=== PATIENT | female | born 1970 | race American Indian/Alaskan Native ===

== ENCOUNTER 2022-01-31 12:42 | Emergency (ER) | payer SELFPAY ==
[2022-01-31] MEDS ORDERED: cefTRIAXone/NS 1 GM/50 ML 1 GM/50 ML BAG IV ONE (15:46)
--- NOTE | 2022-01-31 16:22 | XRay Report ---
CHEST 1 VIEW 01/31/2022 3:16 PM INDICATION / CLINICAL INFORMATION: sob. COMPARISON: None available. FINDINGS: SUPPORT DEVICES: None. HEART / MEDIASTINUM: No significant abnormality. LUNGS / PLEURA: No significant pulmonary or pleural abnormality. No pneumothorax. ADDITIONAL FINDINGS: No significant additional findings. IMPRESSION: 1. No acute findings. Signer Name: Shalom Foster Jr, MD Signed: 01/31/2022 4:18 PM Workstation Name: [id number]
[2022-01-31 16:50] LABS: Alanine Aminotransferase 14 units/L (7-56); Albumin 3.7 g/dL (3.9-5); BUN/Creatinine Ratio 15; Blood Urea Nitrogen 17 mg/dL (7-17); Calcium 9.1 mg/dL (8.4-10.2); Hemolysis Index 14
[2022-01-31 19:43] LABS: Mucus,Urine 3+ /HPF
[2022-01-31 19:46] LABS: WBC,Urine > 182.0 /HPF (0.0-6.0)
--- NOTE | 2022-01-31 19:48 | Emergency Department Report ---
ED Fever HPI - General Chief Complaint: Fever Stated Complaint: FEVER/NAUSEA/VOMITING Time Seen by Provider: 01/31/22 15:45 Source: patient Exam Limitations: no limitations - History of Present Illness Initial Comments: 51-year-old -[place] female sent from [facility] because she had a fever of 102. Patient admits to having cough patient admits that she is having dysur ia frequency and was put on Keflex a week ago but is still having symptoms admits to dysuria and frequency. Timing/Duration: week (1) Fever Severity/Quality: greater than 100.5 F Associated Symptoms: cough, other (Burning on urination) ED Review of Systems ROS: Stated complaint: FEVER/NAUSEA/VOMITING Other details as noted in HPI Constitutional: see HPI Eyes: denies: eye pain, eye discharge, vision change ENT: denies: ear pain, throat pain Respiratory: cough. denies: shortness of breath, wheezing Cardiovascular: denies: chest pain, palpitations Endocrine: no symptoms reported Gastrointestinal: denies: abdominal pain, nausea, diarrhea Genitourinary: urgency, dysuria, frequency Skin: denies: rash, lesions Neurological: denies: headache, weakness, paresthesias Psychiatric: denies: anxiety, depression Hematological/Lymphatic: denies: easy bleeding, easy bruising ED Past Medical Hx - Past Medical History Previous Medical History?: Yes Hx Hypertension: Yes Hx Arthritis: Yes Hx Psychiatric Treatment: Yes (bipolar) - Surgical History Past Surgical History?: No - Social History Smoking Status: Never Smoker Substance Use Type: None - Medications Home Medications: Home Medications Medication Instructions Recorded Confirmed Last Taken Type Cefuroxime Axetil [Ceftin] 500 mg PO Q12H #20 ml 01/31/22 Unknown Rx Ondansetron (Nf) [Zofran TAB] 8 mg PO Q8HR PRN #10 tablet 01/31/22 Unknown Rx ED Physical Exam - General Limitations: No Limitations, Other General appearance: alert, in no apparent distress - Head Head exam: Present: atraumatic, normocephalic - Eye Eye exam: Present: normal appearance, PERRL, EOMI - ENT ENT exam: Present: normal exam, normal orophraynx, mucous membranes moist - Neck Neck exam: Present: normal inspection. Absent: tenderness, meningismus - Respiratory Respiratory exam: Present: normal lung sounds bilaterally. Absent: respiratory distress, chest wall tenderness - Cardiovascular Cardiovascular Exam: Present: regular rate, normal rhythm, normal heart sounds - GI/Abdominal GI/Abdominal exam: Present: soft, normal bowel sounds. Absent: distended, tenderness, guarding - Extremities Exam Extremities exam: Present: normal inspection, full ROM - Back Exam Back exam: Present: normal inspection - Neurological Exam Neurological exam: Present: alert, oriented X3, CN II-XII intact, normal gait - Psychiatric Psychiatric exam: Present: normal affect, normal mood - Skin Skin exam: Present: warm, dry ED Course Vital Signs 01/31/22 01/31/22 01/31/22 12:47 13:42 13:44 Temperature 102.5 F H 100.5 F H Pulse Rate 82 Respiratory 18 18 Rate Blood Pressure 106/70 [Left] O2 Sat by Pulse 97 97 Oximetry ED Medical Decision Making - Lab Data Result diagrams: 01/31/22 16:12 Critical care attestation.: If time is entered above; I have spent that time in minutes in the direct care of this critically ill patient, excluding procedure time. ED Disposition Clinical Impression: UTI (urinary tract infection) Disposition: 03 [facility] FACILITY Is pt being admited?: No Does the pt Need Aspirin: No Condition: Stable Instructions: Antibiotic Medicine, Adult, [id number], Urinary Tract Infection, Adult, Antibiotic Medicine, Adult Prescriptions: Cefuroxime Axetil [Ceftin] 500 mg PO Q12H #20 ml Ondansetron (Nf) [Zofran TAB] 8 mg PO Q8HR PRN #10 tablet PRN Reason: Agitation / Pain Referrals: PARKER COELLO MD [Primary Care Provider] - 3-5 Days
[2022-01-31 19:51] LABS: Color,Urine Brown (Yellow)
[2022-01-31] MEDS ORDERED: ACETAMINOPHEN 500 MG TAB PO ONE (20:34)
[2022-01-31] MEDS ORDERED: IBUPROFEN 800 MG TAB PO ONE (20:34)
[2022-01-31 20:36] VITALS: BP 109/65
== END 2022-01-31 22:30 | disposition home or self-care (01) ==
LOC: ED 12:42
DX: N39.0 Urinary tract infection, site not specified (principal); I10 Essential (primary) hypertension; M19.90 Unspecified osteoarthritis, unspecified site; F31.9 Bipolar disorder, unspecified
CPT/HCPCS: 36415; 71045; 80053; 81001; 87040; 96365; 99284; J0696